=== PATIENT | female | born 1995 | race Hispanic/Latino ===

== ENCOUNTER 2016-11-27 20:02 | Emergency (ER) | payer OTHER ==
[~2016-11-27] VITALS: Ht 154.9 cm; Wt 56.8 kg
[2016-11-27] MEDS ORDERED: PRENTAB40 PO (20:14)
[2016-11-27 20:52] LABS: CONTROL LINE UCG INT CTR LINE PRESENT
[2016-11-27] MEDS ORDERED: MACR100C43 PO (21:09)
[2016-11-27 21:15] VITALS: BP 128/69
[2016-11-27] MEDS ORDERED: NITROFURANTOIN (MACROBID) 100 MG CAP PO ONE (21:15)
== END 2016-11-27 21:24 | disposition home or self-care (01) ==
LOC: M ED 20:02
DX: O23.40 Unspecified infection of urinary tract in pregnancy, unspecified trimester (principal); Z3A.00 Weeks of gestation of pregnancy not specified

== ENCOUNTER 2016-11-30 16:06 | Emergency (ER) | payer OTHER ==
[~2016-11-30] VITALS: Ht 149.9 cm; Wt 56.8 kg
[~2016-11-30 16:06] MED LIST: MACR100C43 PO; PRENTAB40 PO
[2016-11-30 16:27] VITALS: BP 129/70
[2016-11-30 19:08] LABS: BASO # 0.1 K/mm3 (0.0-0.2); BASO % 0.8 % (0.0-1.0); EOS # 0.3 K/mm3 (0.0-0.50); EOS % 3.5 % (0.0-3.0); LARGE UNSTAINED CELL # 0.2 K/mm3 (0.0-0.4); LARGE UNSTAINED CELL % 2.1 % (0.0-4.0); LYMPH # 2.2 K/mm3 (1.5-6.5); LYMPH % 29.1 % (24.0-44.0); MEAN CORPUSCULAR HEMOGLOBIN 28.6 pg (27.0-33.0); MEAN CORPUSCULAR HGB CONC 35.1 g/dl (32.0-36.5); MEAN CORPUSCULAR VOLUME 81.5 fl (80.0-96.0); MONO # 0.5 K/mm3 (0.0-0.8); MONO % 6.5 % (0.0-5.0); NEUTROPHILS # 4.5 K/mm3 (1.8-7.7); PLATELET COUNT, AUTOMATED 258 k/mm3 (150-450); WHITE BLOOD COUNT 7.7 K/mm3 (4.0-10.0)
[2016-11-30 20:01] LABS: ALBUMIN 3.8 GM/DL (3.2-5.2); ALBUMIN/GLOBULIN RATIO 1.19 (1.00-1.93); ALKALINE PHOSPHATASE 47 U/L (45-117); ALT/SGPT 26 U/L (12-78); ANION GAP 9 MEQ/L (8-16); AST/SGOT 9 U/L (15-37); BILIRUBIN,TOTAL 0.2 MG/DL (0.2-1.0); BLOOD UREA NITROGEN 10 MG/DL (7-18); CARBON DIOXIDE LEVEL 27 MEQ/L (21-32); CHLORIDE LEVEL 106 MEQ/L (98-107); CREATININE FOR GFR 0.53 MG/DL (0.55-1.02); GLOMERULAR FILTRATION RATE > 60.0 (>60); GLUCOSE, FASTING 60 MG/DL (70-105); HCG, SERUM QUANTITATIVE 6568 MIU/ML; POTASSIUM SERUM 3.8 MEQ/L (3.5-5.1); SODIUM LEVEL 142 MEQ/L (136-145)
--- NOTE | 2016-11-30 21:00 | REPUSA ---
Clinical history: vaginal bleeding. Findings: Real-time transabdominal and transvaginal ultrasound images of the pelvis were obtained. Th e cervix is closed. An anteverted uterus is noted, measuring 9.3 x 4.3 x 6.1 cm. The uterus demonstra erin normal echotexture and echogenicity. There is a single intrauterine gestational sac with a mean s ac diameter of 25.1 mm. No pole or yolk sac is seen at this time. The right ovary measures 4.2 x 1.6 x 1.7 cm. The left ovary measures 2.8 x 1.8 x 2.4 cm. No adnexal masses are seen. Color Doppler flow is seen within both ovaries. There is trace free fluid in the cul-de-sac. Impression: 1. Large empty intrauterine gestational sac without a pole or yolk sac. The findings are suspic ious for a blighted ovum. Follow-up with serial serum beta hCG levels is recommended for further eval uation. 2. The cervix remains closed. 3. Trace free fluid in the cul-de-sac.
== END 2016-11-30 21:49 | disposition home or self-care (01) ==
LOC: M ED 16:06
DX: O02.0 Blighted ovum and nonhydatidiform mole (principal)

== ENCOUNTER 2016-12-07 20:21 | Emergency (ER) | payer OTHER ==
[~2016-12-07] VITALS: Ht 149.9 cm; Wt 56.8 kg
[2016-12-07] MEDS ORDERED: ACET1TAB17 PO (20:38)
[2016-12-07 21:18] LABS: BASO % 0.5 % (0.0-1.0); EOS # 0.1 10^3/uL (0.0-0.50); EOS % 1.1 % (0.0-3.0); IMMATURE GRANULOCYTE % 0.6 % (0-0); LYMPH # 1.4 10^3/uL (1.5-6.5); LYMPH % 16.3 % (24.0-44.0); MEAN CORPUSCULAR HEMOGLOBIN 27.3 pg (27.0-33.0); MEAN CORPUSCULAR HGB CONC 33.6 g/dl (32.0-36.5); MEAN CORPUSCULAR VOLUME 81.4 fl (80.0-96.0); MONO # 0.6 10^3/uL (0.0-0.8); MONO % 7.6 % (0.0-5.0); NEUTROPHILS # 6.1 10^3/uL (1.8-7.7); NEUTROPHILS % 73.9 % (36.0-66.0); PLATELET COUNT, AUTOMATED 215 10^3/uL (150-450); RED CELL DISTRIBUTION WIDTH 12.5 % (11.5-14.5); WHITE BLOOD COUNT 8.3 10^3/uL (4.0-10.0)
[2016-12-07 21:19] LABS: ADD MORPHOLOGY? NO
[2016-12-07] MEDS ORDERED: NS 1,000 ML IV ONE ×2 (21:30→22:45)
[2016-12-07 21:47] LABS: HCG, SERUM QUANTITATIVE 792 MIU/ML
--- NOTE | 2016-12-07 22:20 | REPUSA ---
Clinical history: vaginal bleeding. Comparison: 11/30/2016. Findings: Real-time transabdominal ultrasound images of the pelvis were obtained. An anteverted uteru s is noted, measuring 8.0 x 4.4 x 4.5 cm. The uterus demonstrates normal echotexture and echogenicity . The endometrial stripe measures 8 mm and is within normal limits. The right ovary measures 2.9 x 1. 8 x 2.8 cm. The left ovary measures 3.2 x 2.5 x 2.4 cm. No adnexal masses are seen. Color Doppler jocy w is seen within both ovaries. There is no evidence of free fluid. Impression: Unremarkable ultrasound examination of the pelvis. The gestational sac seen on the prior study is no longer visualized, consistent with a complete .
[2016-12-07] MEDS ORDERED: TYLE325T5 PO (22:35)
[2016-12-08] MEDS ORDERED: NS 1,000 ML IV ONE (00:30)
[2016-12-08 02:19] LABS: ANION GAP 8 MEQ/L (8-16); BLOOD UREA NITROGEN 11 MG/DL (7-18); CALCIUM LEVEL 8.3 MG/DL (8.5-10.1); CARBON DIOXIDE LEVEL 26 MEQ/L (21-32); CHLORIDE LEVEL 105 MEQ/L (98-107); CREATININE FOR GFR 0.69 MG/DL (0.55-1.02); GLOMERULAR FILTRATION RATE > 60.0 (>60); GLUCOSE, FASTING 88 MG/DL (70-105); POTASSIUM SERUM 3.8 MEQ/L (3.5-5.1); SODIUM LEVEL 139 MEQ/L (136-145)
[2016-12-08] MEDS ORDERED: METAL LOCK LOOP XX ONE (05:41)
[2016-12-08 07:44] VITALS: BP 117/56
== END 2016-12-08 07:51 | disposition home or self-care (01) ==
LOC: M ED 20:21
DX: O03.6 Delayed or excessive hemorrhage following complete or unspecified spontaneous abortion (principal); D64.9 Anemia, unspecified
CPT/HCPCS: 36415; 36430; 76856; 80048; 84702; 85014; 85018; 85025; 86850; 86900; 86901; 86920; 93976; 96360; 96361; 99285; P9016

== ENCOUNTER → 2018-02-13 | Outpatient (CLI) | payer OTHER | LOC: M RAD 10:02 | DX: Z34.83 Encounter for supervision of other normal pregnancy, third trimester (principal); Z3A.27 27 weeks gestation of pregnancy | CPT/HCPCS: 76820 ==